=== PATIENT | female | born 2000 | race African-American/Black ===

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

== ENCOUNTER 2019-01-23 04:02 | Emergency (ER) | payer SELFPAY ==
[~2019-01-23] VITALS: Ht 162.6 cm; Wt 44.5 kg
[~2019-01-23 04:02] MED LIST changes: +NAPR-695 PO
[2019-01-23 04:29] VITALS: BP 135/64
[2019-01-23] MEDS ORDERED: AMOX500C PO (05:00)
--- NOTE | 2019-01-23 05:00 | PHYS DOC ---
Past Medical History Past Medical History: No Pertinent History Past Surgical History: No Surgical History Alcohol Use: None Drug Use: None Adult General Chief Complaint Chief Complaint: EARACHE/EAR PAIN [facility] HPI 19-year-old female presents to the emergency department with right ear pain. Patient states pain started around 1 AM. She denies any fever, nausea, vomiting. She does have some sore throat appreciated. Nothing makes her symptoms worse, nothing makes her symptoms better. She has tried no [id number] medications. All other ROS negative unless documented in HPI Review of Systems Review of Systems See Above Allergies Allergies Allergies Coded Allergies Type Severity Reaction Last Updated Verified No Known Drug Allergies 06/11/16 No Physical Exam Physical Exam See Above Constitutional: Well developed, well nourished, mild distress, non-toxic appearance. [] HENT: Normocephalic, atraumatic, right OM - redness/TM bulging, oropharynx moist, no oral exudates, nose normal. [] Eyes: PERRLA, EOMI, conjunctiva normal, no discharge. [] Neck: Normal range of motion, mild LAD tenderness on exam R>L, supple, no stridor. [] Cardiovascular:Heart rate regular rhythm, no murmur [] Lungs & Thorax: Bilateral breath sounds clear to auscultation [] Abdomen: Bowel sounds normal, soft, no tenderness, no masses, no pulsatile masses. [] Skin: Warm, dry, no erythema, no rash. [] Extremities: No tenderness, no edema. [] Neurologic: Alert and oriented X 3, no focal deficits noted. [] Psychologic: Affect normal, judgement normal, mood normal. [] Current Patient Data Vital Signs Vital Signs Date Time Temp Pulse Resp B/P (MAP) Pulse Ox O2 Delivery O2 Flow Rate FiO2 01/23/19 04:29 98.8 98 18 135/64 (87) 98 Room Air 98.8 EKG EKG [] Radiology/Procedures Radiology/Procedures [] Course & Med Decision Making Course & Med Decision Making Pertinent Labs and Imaging studies reviewed. (See chart for details) []19-year-old female presents to the emergency department with right ear pain. Patient states pain started around 1 AM. She denies any fever, nausea, vomiting. She does have some sore throat appreciated. Nothing makes her symptoms worse, nothing makes her symptoms better. She has tried no [id number] medications. All other ROS negative unless documented in HPI Physical exam with evidence of right OM Tylenol 1 gram po in ER Rx provided upon discharge Symptomatic treatment with tylenol/Motrin Return precautions provided Gloria Disclaimer Gloria Disclaimer This electronic medical record was generated, in whole or in part, using a voice recognition dictation system. Departure Departure Impression: Primary Impression: Right otitis media Disposition: HOME, SELF-CARE Condition: STABLE Referrals: UNKNOWN PCP NAME (PCP) Patient Instructions: Otitis Media, Adult Additional Instructions: Recommend follow up with PCP 3 - 5 days Return to the ER with worsening symptoms, intractable pain, fever, altered mental status Tylenol/Motrin as needed for pain Take antibiotics as directed Scripts Amoxicillin (AMOXICILLIN) 500 Mg Capsule 1 CAP PO Q8HRS for infection, #30 CAP Prov: KISHAN HAQ MD 01/23/19 Problem Qualifiers Primary Impression: Right otitis media Otitis media type: unspecified Qualified Codes: H66.91 - Otitis media, unspecified, right ear KISHAN HAQ MD Jan 23, 2019 05:00
[2019-01-23] MEDS ORDERED: ACETAMINOPHEN 500 MG TABLET PO ONE (05:15)
== END 2019-01-23 05:01 | disposition home or self-care (01) ==
LOC: ER 04:02
DX: H66.91 Otitis media, unspecified, right ear (principal); J02.9 Acute pharyngitis, unspecified
CPT/HCPCS: 99283

== ENCOUNTER 2020-06-26 10:36 | Emergency (ER) | payer SELFPAY ==
[~2020-06-26] VITALS: Ht 152.4 cm; Wt 50.0 kg
[~2020-06-26 10:36] MED LIST changes: +AMOX500C PO
[2020-06-26 11:07] VITALS: BP 132/76
[2020-06-26 11:44] LABS: BILIRUBIN,URINE NEGATIVE (NEG); CLARITY,URINE CLEAR; COLOR,URINE YELLOW; NITRITE,URINE NEGATIVE (NEG); PH,URINE 7.5 (<5.0-8.0); PROTEIN,URINE NEGATIVE (NEG-TRACE); UROBILINOGEN,URINE 0.2 mg/dL (0.2 mg/dL)
[2020-06-26 12:16] LABS: RBC,URINE 0 /HPF (0-2)
[2020-06-26 12:17] LABS: BACTERIA,URINE 0 /HPF (0-FEW)
[2020-06-26 12:18] LABS: TRICHOMONAS,URINE PRESENT
[2020-06-26] MEDS ORDERED: cefTRIAXone IM 500 MG VIAL. IM ONE (12:30)
[2020-06-26] MEDS ORDERED: DOXYCYCLINE HYCLATE 100 MG TABLET PO ONE (12:30)
[2020-06-26] MEDS ORDERED: metroNIDAZOLE 500 MG TABLET PO ONE (12:30)
[2020-06-26] MEDS ORDERED: ACYC800T88 PO (13:24)
[2020-06-26] MEDS ORDERED: SULF1TAB24 PO (13:26)
[2020-06-26] MEDS ORDERED: DOXY100T PO (13:26)
[2020-06-26] MEDS ORDERED: FLUC150T PO (13:26)
--- NOTE | 2020-06-26 13:27 | PHYS DOC ---
Past Medical History Past Medical History: No Pertinent History, STD Past Surgical History: No Surgical History Smoking Status: Never Smoker Alcohol Use: None Drug Use: None General Adult EDM: Chief Complaint: ABDOMINAL PAIN HPI: HPI: Patient is a 20 year old female who presents to the ED today complaining of vaginal discharge for 2 weeks. Patient is also complaining of having 2 menstrual cycles in the last 1 month. Patient is also complaining of mild intermittent pelvic pain. Patient denies any exacerbating or relieving factors. She states somebody she is in a relationship with informed her he was positive for gonorrhea. She would like to be treated. Denies any fever. Review of Systems: Review of Systems: Constitutional: Denies fever or chills. [] Eyes: Denies change in visual acuity. [] HENT: Denies nasal congestion or sore throat. [] Respiratory: Denies cough or shortness of breath. [] Cardiovascular: Denies chest pain or edema. [] GI: Reports pelvic pain, two menstrual cycles in one month, denies nausea, vomiting, bloody stools or diarrhea. [] : Reports vaginal discharge. Denies dysuria. [] Musculoskeletal: Denies back pain or joint pain. [] Integument: Denies rash. [] Neurologic: Denies headache, focal weakness or sensory changes. [] Psychiatric: Denies depression or anxiety. [] Heart Score: C/O Chest Pain: N/A Risk Factors: Risk Factors: DM, Current or recent (<one month) smoker, HTN, HLP, family history of CAD, obesity. Risk Scores: Score 0 - 3: 2.5% MACE over next 6 weeks - Discharge Home Score 4 - 6: 20.3% MACE over next 6 weeks - Admit for Clinical Observation Score 7 - 10: 72.7% MACE over next 6 weeks - Early Invasive Strategies Current Medications: Current Medications Medications (Trade) Dose Ordered Sig/Breana Start Time Stop Time Status Last Admin Dose Admin Ceftriaxone Sodium (Rocephin Im) 500 mg 1X ONCE 06/26/20 12:30 06/26/20 12:33 DC 06/26/20 12:58 500 MG Doxycycline Hyclate (Vibra-Tab) 100 mg 1X ONCE 06/26/20 12:30 06/26/20 12:33 DC 06/26/20 12:58 100 MG Metronidazole (Flagyl) 2,000 mg 1X ONCE 06/26/20 12:30 06/26/20 12:33 DC 06/26/20 12:58 2,000 MG Allergies: Allergies: Allergies Coded Allergies Type Severity Reaction Last Updated Verified No Known Drug Allergies 06/11/16 No Physical Exam: PE: Constitutional: Well developed, well nourished, no acute distress, non-toxic appearance. [] Abdomen: Bowel sounds normal, soft, no tenderness, no masses, no pulsatile masses. [] pelvic External pelvic appears normal, cervix is visualized, positive CMT, no adnexal tenderness, white discharge in the vaginal vault. No bleeding Skin: Warm, dry, no erythema, no rash. [] Back: No tenderness, no CVA tenderness. [] Extremities: No tenderness, no cyanosis, no clubbing, ROM intact, no edema. [] Neurologic: Alert and oriented X 3, normal motor function, normal sensory function, no focal deficits noted. [] Psychologic: Affect normal, judgement normal, mood normal. [] Current Patient Data: Labs: Laboratory Tests Test 06/26/20 10:39 06/26/20 10:52 Urine Collection Type Void Urine Color Yellow Urine Clarity Clear Urine pH 7.5 (<5.0-8.0) Urine Specific [place] 1.015 (1.000-1.030) Urine Protein Negative mg/dL (NEG-TRACE) Urine Glucose (UA) Negative mg/dL (NEG) Urine Ketones (Stick) Negative mg/dL (NEG) Urine Blood Negative (NEG) Urine Nitrite Negative (NEG) Urine Bilirubin Negative (NEG) Urine Urobilinogen Dipstick 0.2 mg/dL (0.2 mg/dL) Urine Leukocyte Esterase Small (NEG) Urine RBC 0 /HPF (0-2) Urine WBC 11-20 /HPF (0-4) Urine Squamous Epithelial Cells Few /LPF Urine Bacteria 0 /HPF (0-FEW) Urine Mucus Slight /LPF Urine Trichomonas Present POC Urine HCG, Qualitative Hcg negative (Negative) Microbiology 06/26/20 Wet Prep - Final, Complete Vital Signs: Vital Signs Date Time Temp Pulse Resp B/P (MAP) Pulse Ox O2 Delivery O2 Flow Rate FiO2 06/26/20 11:07 97.6 69 14 132/76 (94) 97 Room Air 97.6 EKG: EKG: [] Radiology/Procedures: Radiology/Procedures: [] Course & Med Decision Making: Course & Med Decision Making Pertinent Labs and Imaging studies reviewed. (See chart for details) This is a 20-year-old female patient presented to the ED today complaining of pelvic pain, vaginal discharge, concern for STDs, 2 vaginal bleeding episodes in 1 month. Currently not bleeding. Negative urine hCG. Positive for trichomonas and UTI. Patient was given STD treatment and sent home on doxycycline. Education provided. Gloria Disclaimer: Gloria Disclaimer: This electronic medical record was generated, in whole or in part, using a voice recognition dictation system. Departure Departure Impression: Primary Impression: Trichomonal cervicitis Additional Impressions: UTI (urinary tract infection) Qualified Codes: N39.0 - Urinary tract infection, site not specified Pelvic pain Disposition: HOME / SELF CARE / HOMELESS Condition: STABLE Referrals: NO PCP (PCP) follow up with the health department for further STD concerns Patient Instructions: Trichomoniasis, Urinary Tract Infection Additional Instructions: You tested positive for trichomonas, this is a sexually transmitted disease. If possible do not have any intercourse for 2 weeks. Use protection after that. Complete the prescribed antibiotics. Contact your partners, let them know you were treated for STDs and ask them to seek treatment Scripts Fluconazole (DIFLUCAN) 150 Mg Tablet 1 TAB PO ONCE, #1 TAB 1 Refill Prov: CYNDEE RESENDIZ APRN 06/26/20 Sulfamethoxazole/Trimethoprim (BACTRIM DS TABLET) 1 Each Tablet 1 TAB PO BID for 3 Days, #6 TAB 0 Refills Prov: CYNDEE RESENDIZ APRN 06/26/20 Doxycycline Hyclate (DOXYCYCLINE HYCLATE) 100 Mg Tablet 1 TAB PO BID, #14 TAB Prov: CYNDEE RESENDIZ APRN 06/26/20 Acyclovir (ACYCLOVIR) 800 Mg Tablet 1 TAB PO 5XDAY, #50 TAB Prov: CYNDEE RESENDIZ APRN 06/26/20 CYNDEE RESENDIZ APRN June 26, 2020 13:27
[2020-06-27 14:13] LABS: GC PROBE Negative (Negative)
== END 2020-06-26 13:49 | disposition home or self-care (01) ==
LOC: ER 10:36
DX: A59.09 Other urogenital trichomoniasis (principal); N39.0 Urinary tract infection, site not specified
CPT/HCPCS: 81001; 81025; 87086; 87491; 87591; 96372; 99283; J0696; Q0111